=== PATIENT | male | born 1930 | race Caucasian/White ===

== ENCOUNTER 2019-01-26 05:34 | Inpatient (IN) | payer OTHER ==
[~2019-01-26] VITALS: Ht 182.9 cm; Wt 57.8 kg
[2019-01-26 05:55] LABS: PCO2 Arterial 72.9 mmHg (35-45); PO2 Arterial 128 mmHg (80-100); pH Blood Arterial 7.22 (7.35-7.45)
[2019-01-26] MEDS ORDERED: DOCU100 PO (06:20)
[2019-01-26 06:21] LABS: BASOPHILS ABSOLUTE AUTO 0.06 K/mm3 (0.00-0.23); BASOPHILS PERCENT AUTO 1 % (0-2); EOSINOPHILS ABSOLUTE AUTO 0.12 K/mm3 (0.00-0.68); EOSINOPHILS PERCENT AUTO 1 % (0-6); Hematocrit 40.7 % (37.0-53.0); Hemoglobin 12.4 g/dL (13.5-17.5); IMMATURE GRAN ABSOLUTE AUTO 0.05 K/mm3 (0.00-0.10); IMMATURE GRAN PERCENT AUTO 0 % (0-1); LYMPHOCYTES ABSOLUTE AUTO 2.37 K/mm3 (0.84-5.20); LYMPHOCYTES PERCENT AUTO 20 % (21-46); MONOCYTES ABSOLUTE AUTO 1.53 K/mm3 (0.16-1.47); MONOCYTES PERCENT AUTO 13 % (4-13); Mean Corpuscular HGB 31.6 pg (26.0-34.0); Mean Corpuscular HGB Conc 30.5 g/dL (31.5-36.5); Mean Corpuscular Volume 104 fL (80-100); NEUTROPHILS ABSOLUTE AUTO 7.89 K/mm3 (1.96-9.15); NEUTROPHILS PERCENT AUTO 66 % (41-73); Platelet Count 247 K/mm3 (150-400); RDW Coefficient Variation 11.8 % (11.7-14.2); RDW Standard Deviation 45.1 fL (35.1-46.3); Red Blood Cell Count 3.93 M/mm3 (4.30-5.90); White Blood Cell Count 12.02 K/mm3 (4.00-11.30)
[2019-01-26] MEDS ORDERED: MONT10T PO (06:21)
[2019-01-26] MEDS ORDERED: CETI5 PO (06:21)
[2019-01-26] MEDS ORDERED: ALBU90OI INH (06:21)
[2019-01-26] MEDS ORDERED: ZESTORETIC 20-121 EA PO (06:22)
[2019-01-26] MEDS ORDERED: OSTERA TABLET1 EACH (06:23)
[2019-01-26] MEDS ORDERED: Flonase 0.05% N16 GM (06:23)
[2019-01-26] MEDS ORDERED: SPIRIVA RESPIMAT4 GM (06:24)
[2019-01-26] MEDS ORDERED: ABAT250V (06:24)
[2019-01-26 06:35] LABS: Albumin/Globulin Ratio 0.9 (0.8-1.8); Bilirubin, Total 0.9 mg/dL (0.1-1.0); Bun/Creatinine Ratio 18.2 (12.0-20.0); Calcium, Blood 9.6 mg/dL (8.5-10.1); Creatinine, Blood 1.43 mg/dL (0.60-1.20); Globulin, Blood 4.3 g/dL (2.2-4.0); Potassium, Blood 4.4 mmol/L (3.5-5.5); Total Protein, Blood 8.3 g/dL (6.4-8.2); Troponin I 0.059 ng/mL (0.000-0.040)
[2019-01-26 07:32] LABS: Base Excess Venous 0.9 mmol/L; Bicarbonate Venous 24.1 mmol/L (24.0-30.0); PCO2 Venous 58.4 mmHg (38-42); PO2 Venous 46.1 mmHg (38-42)
[2019-01-26 07:33] LABS: pH Blood Venous 7.28 (7.34-7.37)
--- NOTE | 2019-01-26 09:00 | NUR ---
PT TO ROOM FROM ER AT 0845, REPORT FROM JOSI COPPOLA. PT ARRIVES ON BIPAP 03/09 35%. LR BOLUS INFUSING. HYPOTENSIVE. LUNGS COARSE THROUGHOUT. PT RESPONSES TO YES/NO QUESTIONS. AGGITATED IN BED. REDIRECTABLE. REPOSITIONED FOR COMFORT. SO CECY AT BEDSIDE. 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 BULL CERTIFIED NURSING ASSISTANT DISCUSSING CODE STATUS. PER CECY, PT WISHES TO BE DNI/DNR. WOULD LIKE TO CONTINUE c NON INVASIVE MEASURES, BIPAP AND ANTIBIOTICS. DNR BAND PLACED. 16F BLACKWELL CATH PLACED PER BULL, URINE SENT TO LAB. CLEAR YELLOW URINE OUT. WILL CONTINUE TO MONITOR.
[2019-01-26 09:37] LABS: Troponin I 0.067 ng/mL (0.000-0.040)
[2019-01-26 10:07] LABS: Source, Urine Catheter
[2019-01-26 10:09] LABS: Bilirubin, Urine Neg (Neg); Blood, Urine 2+ (Neg); Glucose Qualitative, Urine Neg (Neg); Ketones, Urine Neg (Neg); Leukocyte Esterase, Urine Neg (Neg); Nitrite, Urine Neg (Neg); Protein, Urine 3+ (Neg); Urobilinogen, Urine NORM (Normal)
[2019-01-26 10:23] LABS: Appearance, Urine Hazy (Clear); Bacteria Not Seen /hpf; Color, Urine Yellow (P-Yellow); Red Blood Cells, Urine 0-2 /hpf (0-2); Squamous Epithelial Cells Few /hpf (Few); White Blood Cells, Urine Not Seen /hpf (0-5)
--- NOTE | 2019-01-26 10:23 | NUR ---
Initial Visit: Palliative Care Consult for Advanced Care Planning, End Stage, and Symptom Management. Pt is known to this copy writer. Pt is resting in bed with his eyes closed and is on BIPAP. Pt appears intermittently anxious as eveidenced of periodic flailing of upper extremities. Bedside nurse gives Morphine via IV. Family at bedside. Pt's 2 sons and Nya are present. Engaged in therapeutic discussion regarding goals of care. Pt was on hospice services approximately 1 1/2 years ago in which time he stabalized and was taken off of hospice services. Pt is mostly independent of his ADL's. Pt does require assistance with bathing. Pt wears 3 1/2 L of O2 at baseline and increases O2 when taking a shower. Listened as Nya discussed goal of stabalizing Pt then home with hospice. Nya reports agency of choice is [facility]. Nya is tearful throughout visit and this RN offered emotional support. Nya leanna need for spiritual support for Pt and her self. Gave Nya contact information for Palliative Care and instructed to call for any questions or concerns. Spoke with bedside nurse and Foundry Tender and discussed case. Called and spoke with [facility] and discussed plan. Plan: Family hopefull for Pt to stabalize then home with hospice. Will revisit goals of care as needed, follow for symptom management, and therapeutic visits.
[2019-01-26 10:24] LABS: Amorphous Light (0-Heavy); Mucus Light (0-Heavy)
--- NOTE | 2019-01-26 10:46 | NUR ---
Echocardiogram completed.
[2019-01-26 12:21] LABS: Base Excess Venous -0.8 mmol/L; Bicarbonate Venous 23.7 mmol/L (24.0-30.0); PO2 Venous 181 mmHg (38-42); pH Blood Venous 7.36 (7.34-7.37)
--- NOTE | 2019-01-26 14:01 | NUR ---
PT RESTING COMFORTABLY IN BED. NO LONGER REACHING FOR MASK. HR VARIES FROM 80-150'S. DR MCFADDEN UPDATED. EKG DONE. WILL CONTINUE TO MONITOR.
--- NOTE | 2019-01-26 16:16 | NUR ---
BIPAP REMOVED PER DR MCFADDEN. PLACED ON 4L VIA NC. PT A&OX 3. DENIES PAIN. STATES SOB IMPROVED. RESP PANEL COLLECTED. LUNGS TIGHT THROUGHOUT. WILL CONTINUE TO MONITOR.
[2019-01-26] MEDS ORDERED: BUDE6HFA INH (16:24)
--- NOTE | 2019-01-26 17:52 | NUR ---
Pt resting in bed with family at bedside. Pt currently off BIPAP and is on O2 via NC. Some dyspnea noted with speaking. Engaged in theapeutic discussion regarding goals of care. Pt expresses interest in hospice once he is ready to discharge from hospital. Suggested music therapy for comfort and Pt expresses interest. Pt requests to have Vahe from music therapy. No other concerns reported. Pt and family expresses appreciation of visit. Placed Music therapy referral. Palliative Care will remain available.
[2019-01-26 18:04] LABS: Adenovirus Not Detected (NOT DETECT); Bordetella pertussis Not Detected (NOT DETECT); Chlamydophila pneumoniae Not Detected (NOT DETECT); Coronavirus 229E Not Detected (NOT DETECT); Coronavirus HKU1 Not Detected (NOT DETECT); Coronavirus NL63 Not Detected (NOT DETECT); Coronavirus OC43 Not Detected (NOT DETECT); Human Metapneumovirus Not Detected (NOT DETECT); Human Rhinovirus/Enterovirus Not Detected (NOT DETECT); Influenza A Not Detected (NOT DETECT); Influenza A/2009-H1 Not Detected (NOT DETECT); Influenza A/H1 Not Detected (NOT DETECT); Influenza A/H3 Not Detected (NOT DETECT); Influenza B Not Detected (NOT DETECT); Mycoplasma pneumoniae Not Detected (NOT DETECT); Parainfluenza Virus 1 Not Detected (NOT DETECT); Parainfluenza Virus 2 Not Detected (NOT DETECT); Parainfluenza Virus 3 Not Detected (NOT DETECT); Parainfluenza Virus 4 Not Detected (NOT DETECT); Respiratory Syncytial Virus Not Detected (NOT DETECT)
--- NOTE | 2019-01-26 18:14 | NUR ---
SHIFT SUMMARY PT CURRENTLY ON BIPAP, 02/25 35%. PT PLACED ON 4L VIA NC FOR APPROX 2 HOURS THIS SHIFT. TOLERATED WELL. SPEAKING IN FULL SENTANCES. DENIED SOB, NO INCREASED WORK OF BREATHING NOTED. PT AGREEABLE TO WEARING BIPAP TONIGHT c INTERMITTANT BREAKS PER DR MCFADDEN. LUNGS CONTINUE TO BE TIGHT THROUGHOUT. SHALLOW RESP. HR VARIABLE 80-150'S. NO CORRELATION BETWEEN SYMPTOMS AND INCREASED HR NOTABLE AT THIS TIME. PT APPEARS TO REST COMFORTABLY WHEN HR INCREASES. DR MCFADDEN AWARE. REPORT TO ONCOMING NURSE.
--- NOTE | 2019-01-26 19:15 | NUR ---
ASSESSMENT/ASSUMED CARE PT AWAKE SITTING UP IN BED WATCHING TV WITH BIPAP ON. PT STATES,"CAN I HAVE A BREAK FROM THIS, MY MOUTH IS REALLY DRY". BIPAP REMOVED AND PT PLACED ON 4 LITERS O2 VIA NC(HOME DOSE). PT STATES,"MY BREATHING IS MUCH BETTER THAN WHEN I CAME IN. I DON'T THINK MY O2 CONCENTRATOR IS WORKING AT HOME, IT HAS BEEN MAKING NOISES". TALKED WITH PT ABOUT NEED TO HAVE IT SERVICED BEFORE PT GOES HOME. LUNGS DECREASED THROUGHOUT. RESP EVEN AND NONLABORED. RT AT BEDSIDE GIVING UDN TX. PT STATES,"I COUGH SOMETIMES BUT SWALLOW IT". HEART RATE IRREGULAR. BP STABLE. DENEIS CHEST PAIN OR PRESSURE. BT+ ABD SOFT AND NONTENDER. DENIES N/V. BLACKWELL CATH PATENT 16FR DRAINING CLEAR YELLOW URINE. IV 18G TO RIGHT FOREARM SALINE LOCKED, SITE CLEAR, FLUSHED WITHOUT DIFFICULTY. IV 18G TO RIGHT AC WITH NS AT 50 ML/HR, SITE CLEAR. NO EDEMA. SCD'S APPLIED TO BILAT LOWER EXT. EXPLAINED REASONING TO PT.
--- NOTE | 2019-01-26 19:30 | NUR ---
RT/BIPAP PT ON 4 LITERS VIA NC(HOME DOSE). NO RESP DIFFICULTY NOTED. GIVING BREAK FROM BIPAP FOR NOW. RT AND THIS RN TO MONITOR. ORAL CARE DONE BY PT WITH ASSIST. REFUSE DENTURE CARE AT THIS TIME.
--- NOTE | 2019-01-26 20:45 | NUR ---
BIPAP PT PLACED BACK ON BIPAP PER HIS REQUEST. CALLED AND GIVEN UPDATE. PT RESTING QUIELTY
[2019-01-27 03:54] LABS: Base Excess Venous 1.1 mmol/L; PCO2 Venous 49.2 mmHg (38-42); PO2 Venous 87 mmHg (38-42); pH Blood Venous 7.34 (7.34-7.37)
[2019-01-27 03:58] LABS: BASOPHILS PERCENT AUTO 0 % (0-2); EOSINOPHILS PERCENT AUTO 0 % (0-6); Hematocrit 30.2 % (37.0-53.0); Hemoglobin 9.4 g/dL (13.5-17.5); IMMATURE GRAN ABSOLUTE AUTO 0.03 K/mm3 (0.00-0.10); IMMATURE GRAN PERCENT AUTO 0 % (0-1); LYMPHOCYTES ABSOLUTE AUTO 0.26 K/mm3 (0.84-5.20); LYMPHOCYTES PERCENT AUTO 3 % (21-46); MONOCYTES ABSOLUTE AUTO 0.39 K/mm3 (0.16-1.47); MONOCYTES PERCENT AUTO 5 % (4-13); Mean Corpuscular HGB 31.4 pg (26.0-34.0); Mean Corpuscular HGB Conc 31.1 g/dL (31.5-36.5); Mean Platelet Volume 9.9 fL (9.1-12.4); NEUTROPHILS ABSOLUTE AUTO 7.81 K/mm3 (1.96-9.15); NEUTROPHILS PERCENT AUTO 92 % (41-73); Platelet Count 184 K/mm3 (150-400); RDW Coefficient Variation 11.8 % (11.7-14.2); RDW Standard Deviation 43.6 fL (35.1-46.3); Red Blood Cell Count 2.99 M/mm3 (4.30-5.90); White Blood Cell Count 8.49 K/mm3 (4.00-11.30)
[2019-01-27 04:06] LABS: Mean Corpuscular Volume 101 fL (80-100)
[2019-01-27 04:18] LABS: Albumin/Globulin Ratio 0.9 (0.8-1.8); Bilirubin, Total 0.4 mg/dL (0.1-1.0); Bun/Creatinine Ratio 23.2 (12.0-20.0); Calcium, Blood 8.4 mg/dL (8.5-10.1); Creatinine, Blood 1.64 mg/dL (0.60-1.20); Globulin, Blood 3.4 g/dL (2.2-4.0); Magnesium, Blood 2.1 mg/dL (1.6-2.4); Potassium, Blood 4.4 mmol/L (3.5-5.5); Total Protein, Blood 6.4 g/dL (6.4-8.2)
--- NOTE | 2019-01-27 05:52 | NUR ---
SHIFT SUMMARY PT RESTED QUIELTY DURING THE NIGHT. USED BIPAP MOST OF THE NIGHT. BREAKS FROM BIPAP GIVEN AND PT PLACED ON 4 LITERS VIA NC. PT STATES,"I'M BREATHING MUCH BETTER AND HOPE TO GO HOME TODAY". VSS. TALKED WITH PT ABOUT HAVING O2 CONCENTRATOR SERVICED BEFORE GOING HOME. REPORT TO ON COMING NURSE
--- NOTE | 2019-01-27 08:20 | NUR ---
ASSUMED CARE AT 0700. REPORT FROM SARI COPPOLA. PT RESTING IN BED. O2 VIA NC AT 4L. PT DENIES COMPLAINTS. SPEAKING IN FULL SENTANCES. LUNGS DIMINISHED IN BASES, EXPIRATORY WHEEZE NOTED. CLEAR IN UPPER LOBES. PT P/W/D. VSS. BLACKWELL PATENT AND DRAINING TO GRAVITY. NS INFUSING AT 50 ML/HR. CALL LIGHT IN REACH. WILL CONTINUE TO MONITOR.
--- NOTE | 2019-01-27 10:46 | NUR ---
DR LIEBERMAN AT BEDSIDE FOR ASSESSMENT. PLAN FOR DISCHARGE TODAY, HOSPICE CONSULT PRIOR TO DISCHARGE.
--- NOTE | 2019-01-27 12:28 | NUR ---
DR GERARD AND PARTS BACK COUNTER MAN TO SEE PT. PT PENDING D/C AFTER CARE COORDINATION COMPLETE. PT RESTING IN BED. DENIES NEEDS.
--- NOTE | 2019-01-27 13:04 | NUR ---
PT'S HR 140-160 AT THIS TIME WHILE PT IS SITTIN QUIETLY IN BED WITH NO AGITATION OR ACTIVITY NOTED. PT DENIES CHEST PAIN/PRESSURE, FLUTTERING, AND HEART BURN, DENIES DISCOMFORT. WILL CONTINUE TO MONITOR. HOSPICE COORDINATER IN TO SEE PT AND DISCUSS PLAN OF CARE.
[2019-01-27] MEDS ORDERED: ALBU3IS INH (14:38)
[2019-01-27] MEDS ORDERED: LEVO750 PO (14:39)
[2019-01-27] MEDS ORDERED: LORA1 PO (14:40)
[2019-01-27] MEDS ORDERED: MORP20L PO (14:41)
--- NOTE | 2019-01-27 16:00 | NUR ---
D/C INSTRUCTIONS REVIEWED c AND PT, WRITTEN INSTRUCTIONS PROVIDED. PAPER RX'S GIVEN. PT TO BE DISCHARGED TO HOSPICE. IV'S DC'D, PRESSURE DRESSINGS APPLIED. ROSALVA DAUGHERTY'D. PT TRANSPORTED HOME VIA EMS c 4L O2. ALL BELONGINGS HOME c PT.
--- NOTE | 2019-01-27 16:29 | NUR ---
Review of hospice care with the team. bipap will not be covered. Will see if we can faciltate through insurance
--- NOTE | 2019-01-27 17:38 | NUR ---
Spiritual Care inital note: Pt was in bed and on bipap. He appeared frail. Spouse at bedside. Neither engaged in conversation. Brought a warm blanket and drink. Non-taoism family. I wished them peace and comfort.
== END 2019-01-27 16:03 | disposition hospice, home (50) | DRG 871 ==
LOC: ER 05:34 → ICUW 07:52 → ICUE 07:52
PROVIDERS: Emergency Medicine; Internal Medicine Pulmonary Disease; Nurse Practitioner Acute Care; ADMIT Internal Medicine
DX: A41.9 Sepsis, unspecified organism (principal); R65.21 Severe sepsis with septic shock; J96.02 Acute respiratory failure with hypercapnia; J96.01 Acute respiratory failure with hypoxia; G93.41 Metabolic encephalopathy; I21.A1 Myocardial infarction type 2; N17.9 Acute kidney failure, unspecified; J44.1 Chronic obstructive pulmonary disease with (acute) exacerbation; E44.0 Moderate protein-calorie malnutrition; Z68.1 Body mass index [BMI] 19.9 or less, adult; I12.9 Hypertensive chronic kidney disease with stage 1 through stage 4 chronic kidney disease, or unspecified chronic kidney disease; N18.3 Chronic kidney disease, stage 3 (moderate); Z87.891 Personal history of nicotine dependence
CPT/HCPCS: 0099U; 36415; 36600; 51702; 71045; 80053; 81001; 82550; 82803; 83605; 83735; 83880; 84145; 84484; 85025; 85379; 87040; 93005; 93010; 93308; 93321; 94640; 94644; 94660; 96365; 96367; 96375; 99285-25; J0456; J0696; J1644; J1650; J1956; J2060; J2270; J2930; J3475; J7030; J7050; J7120